=== PATIENT | female | born 1990 | race Caucasian/White ===

== ENCOUNTER 2018-03-12 08:39 | Emergency (ER) | payer MEDICAID, OTHER ==
[2018-03-12 08:56] VITALS: PULSE 84; RESP 18; TEMP 98.4; O2SAT 98
--- NOTE | 2018-03-12 11:14 | C.PDOC ---
History Of Present Illness 28 year old female presents to the ED complaining of a left breast abscess that is draining. States that shes had breast abscesses in the past. Patient denies any drainage from the nipple, fever, or chills. 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 Time Seen by Provider: 03/12/18 09:15 Chief Complaint (Nursing): Abnormal Skin Integrity History Per: Patient History/Exam Limitations: no limitations Onset/Duration Of Symptoms: Days Current Symptoms Are (Timing): Still Present Past Medical History Reviewed: Historical Data, Nursing Documentation, Vital Signs Vital Signs: Last Vital Signs Temp 98.4 F 03/12/18 08:50 Pulse 84 03/12/18 08:50 Resp 18 03/12/18 08:50 BP Pulse Ox 98 03/12/18 11:18 - Medical History PMH: Asthma, Gall Bladder Disease (CHOLELITHIASIS), HTN (During ) Denies: Chronic Kidney Disease Surgical History: - [facility] Procedures EXTRACTION OF POC, LOW CERVICAL, OPEN APPROACH (07/22/15) MONITORING OF POC, CARDIAC RATE, 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 Constitutional: Negative for: Fever, Chills Skin: Positive for: Other (abscess to left breast). Negative for: Rash Physical Exam - Physical Exam Appears: Well, Non-toxic, No Acute Distress Skin: Warm, Dry, Other (small abscess noted to left breast at 2 oclock position , open, draining clear fluid, mildly warm to touch; no surrounding erythema) Head: Atraumatic, Normacephalic Eye(s): bilateral: Normal Inspection Neck: Normal ROM, Supple Chest: Symmetrical Extremity: Bilateral: Atraumatic, Normal Color And Temperature, Normal ROM Neurological/Psych: Oriented x3, Normal Speech ED Course And Treatment O2 Sat by Pulse Oximetry: 98 (RA) Pulse Ox Interpretation: Normal Medical Decision Making Medical Decision Making: Impression: 28 year old with left breast abscess Plan: --Advised patient that no I&D is indicated as wound is draining Patient will be discharged home with prescriptions for Bactrim and Cephalexin. Counseled regarding return precautions. Patient instructed to follow up with PMD for wound check in 2-3 days. Disposition Counseled Patient/Family Regarding: Diagnosis, Need For Followup, Rx Given - Disposition Referrals: Shaik Samuel MD [Staff Provider] - Disposition: HOME/ ROUTINE Disposition Time: 09:15 Condition: GOOD Additional Instructions: JONNATHAN KAMINSKI, thank you for letting us take care of you today. Your provider was Yoel Nunez DO and you were treated for ABSCESS. The emergency medical care you received today was directed at your acute symptoms. If you were prescribed any medication, please fill it and take as directed. It may take several days for your symptoms to resolve. Return to the Emergency Department if your symptoms worsen, do not improve, or if you have any other problems. Please contact your doctor or call one of the physicians/clinics you have been referred to that are listed on the Patient Visit Information form that is included in your discharge packet. Bring any paperwork you were given at discharge with you along with any medications you are taking to your follow up visit. Our treatment cannot replace ongoing medical care by a primary care provider outside of the emergency department. Thank you for allowing the [facility] team to be part of your care today. Follow up with your primary care doctor in 2-3 days for re-evaluation and further management. Prescriptions: Cephalexin [cephalexin] 500 mg PO TID #21 cap Sulfamethoxazole/Trimethoprim [Bactrim DS 800 mg-160 mg] 1 tab PO BID #14 tab Instructions: Skin Abscess Forms: [employer] ([place]) - POA Present On Arrival: None - Clinical Impression Clinical Impression: Abscess - Scribe Statement The provider has reviewed the documentation as recorded by the Beronica Holman Provider Attestation: All medical record entries made by the Beronica were at my direction and personally dictated by me. I have reviewed the chart and agree that the record accurately reflects my personal performance of the history, physical exam, medical decision making, and the department course for this patient. I have also personally directed, reviewed, and agree with the discharge instructions and disposition.
== END 2018-03-12 09:23 | disposition home or self-care (01) ==
LOC: C.ER 08:39
DX: N61.1 Abscess of the breast and nipple (principal)